=== PATIENT | female | born 1935 | race Caucasian/White ===

== ENCOUNTER 2018-04-02 06:41 | Inpatient (IN) | payer MEDICARE ==
[~2018-04-02] VITALS: Ht 157.5 cm; Wt 56.7 kg
[~2018-04-02 06:41] MED LIST: ASPIR 8181 MG PO; NORVASC2.5 MG PO; OMEPRAZOLE40 MG PO; PREMARIN0.625 MG PO; VITAMIN D1000 UNI1 PO; WOMEN'S DAILY1 EAC1 PO; ZANAFLEX2 M1 PO
[2018-04-02] MEDS ORDERED: SODIUM CHLORIDE 0.9% 1000ML 1,000 ML IV STA (07:31)
[2018-04-02] MEDS ORDERED: PANTOPRAZOLE 40 MG 10ML VIAL IV NR (07:45)
[2018-04-02] MEDS ORDERED: DIATRIZOATE MEGL/DIATRIZOA SOD 30 ML BTL PO ONE (07:46)
[2018-04-02 08:00] LABS: BASOPHILS % 0.5 % (0.0-1.0); EOSINOPHILS # (AUTO) 0.2 (0.0-0.4); HEMATOCRIT 38.8 % (34.2-44.1); LYMPHOCYTES # (AUTO) 1.2 (1.0-3.2); LYMPHOCYTES % 13.8 % (18.0-39.1); MEAN CORPUSCULAR HGB CONC 33.5 g/dL (31-35); MEAN CORPUSCULAR VOLUME 89.4 fL (81-99); MONOCYTES # (AUTO) 0.7 (0.2-0.8); MONOCYTES % 8.1 % (4.4-11.3); NEUTROPHILS # (AUTO) 6.4 (2.1-6.9); NEUTROPHILS % 75.2 % (38.7-80.0); PLATELET COUNT 224 x10e3/uL (140-360); RED BLOOD COUNT 4.34 x10e6/uL (3.6-5.1); RED CELL DISTRIBUTION WIDTH 13.2 % (11.7-14.4)
[2018-04-02 08:09] LABS: INR 1.09; PROTHROMBIN TIME 13.3 seconds (11.9-14.5)
[2018-04-02 08:10] LABS: PARTIAL THROMBOPLASTIN TIME 29.1 seconds (23.8-35.5)
[2018-04-02 08:15] LABS: BLOOD UREA NITROGEN 21 mg/dL (7-26)
--- NOTE | 2018-04-02 08:15 | Diagnostic Imaging Report ---
PROCEDURE: CHEST SINGLE (PORTABLE) COMPARISON: 12/21/2015. INDICATIONS: ABDOMEN PAIN FINDINGS: The lungs remain hyperinflated with biapical pleural-parenchymal scar, left greater than right. No consolidation, pleural effusion, or pneumothorax. Stable cardiomediastinal contour with tortuosity and atherosclerotic calcification of the thoracic aorta. Normal heart size. No pulmonary edema. No acute osseous abnormality. No free air under the diaphragm. CONCLUSION: Pulmonary hyperinflation suggestive of obstructive lung disease. No acute cardiopulmonary abnormality. Dictated by: Jose Palmer M.D. on 04/02/2018 at 8:18 Electronically approved by: Jose Palmer M.D. on 04/02/2018 at 8:18
[2018-04-02 08:18] LABS: ALANINE AMINOTRANSFERASE 19 IU/L (0-55); ALBUMIN 3.8 g/dL (3.5-5.0); ALBUMIN/GLOBULIN RATIO 1.1 (0.8-2.0); ALKALINE PHOSPHATASE 53 IU/L (40-150); AMYLASE 71 U/L (25-125); ANION GAP 13.6 mmol/L (8-16); BUN/CREATININE RATIO 22 (6-25); CALCIUM 9.6 mg/dL (8.4-10.2); CARBON DIOXIDE 26 mmol/L (22-29); CHLORIDE 103 mmol/L (98-107); CREATINE KINASE 86 IU/L (29-168); CREATININE, SERUM 0.96 mg/dL (0.57-1.11); EST GLOMERULAR FILTRATION RATE 56 ML/MIN (60-); GLUCOSE 112 mg/dL (74-118); LIPASE 31 U/L (8-78); POTASSIUM 3.6 mmol/L (3.5-5.1); SODIUM 139 mmol/L (136-145)
[2018-04-02 08:21] LABS: B-TYPE NATRIURETIC PEPTIDE2 43.2 pg/mL (0-100)
[2018-04-02 09:36] LABS: BILIRUBIN,URINE NEGATIVE (NEGATIVE); CLARITY,URINE CLEAR (CLEAR); COLOR,URINE YELLOW (YELLOW); KETONES,URINE TRACE (NEGATIVE); LEUKOCYTE ESTERASE ,URINE 1+ (NEGATIVE); NITRITE,URINE NEGATIVE (NEGATIVE); PROTEIN,URINE DIPSTICK NEGATIVE (NEGATIVE); URINE UROBILINOGEN 0.2 mg/dL (0.2 - 1)
[2018-04-02 09:56] LABS: BACTERIA,URINE MODERATE /HPF; EPITHELIAL CELLS,URINE FEW /LPF; RBC,URINE 0-5 /HPF (0-5)
[2018-04-02] MEDS ORDERED: LEVOFLOXACIN 500MG/D5W 100ML IV SCH (13:00)
[2018-04-02] MEDS ORDERED: MORPHINE SULFATE 2 MG/ML SYR IV PRN (13:00)
[2018-04-02] MEDS: CEFTRIAXONE SOD 1 GM VIAL IV SCH (14:20)
[2018-04-02] MEDS: SODIUM CHLORIDE 0.9% 1000ML 1,000 ML IV SCH ×2 (14:20→21:17)
--- NOTE | 2018-04-02 15:02 | Diagnostic Imaging Report ---
PROCEDURE: CT ABDOMEN AND PELVIS WITH CONTRAST TECHNIQUE: The abdomen and pelvis were scanned utilizing a multidetector helical scanner from the diaphragm to the lesser trochanter after the IV administration of 100 cc of Isovue 370 and the oral administration of water. Coronal and sagittal multiplanar reformations were obtained. COMPARISON: None. INDICATIONS: CONSTIPATION FINDINGS: LOWER THORAX: Normal. HEPATOBILIARY: No focal hepatic lesions. No biliary ductal dilatation. SPLEEN: No splenomegaly. PANCREAS: No focal masses or ductal dilatation. ADRENALS: No adrenal nodules. KIDNEYS/URETERS: Subcentimeter hypoattenuating lesion in the left kidney, too small to further characterize though likely represent a small cyst. Additional similar lesion in the lower pole of left kidney. No hydronephrosis or calculi. PELVIC ORGANS/BLADDER: Urinary bladder is unremarkable. The uterus is not identified and may have been removed. No adnexal mass. PERITONEUM / RETROPERITONEUM: Trace free pelvic fluid, average attenuation 15-20 Hounsfield units. No pneumoperitoneum. LYMPH NODES: No pelvic sidewall, retroperitoneal, or mesenteric lymphadenopathy. VESSELS: The abdominal aorta, major branch vessels, and iliac arterial systems are patent, though with calcified and noncalcified atherosclerotic plaque. No abdominal aortic aneurysm. Portal vein, splenic vein, and the central superior mesenteric vein are patent. GI TRACT: The large bowel is notable for innumerable sigmoid diverticula. Short segment wall thickening and mesocolic inflammation along the distal sigmoid colon. No perforation or drainable fluid collection. The appendix is not definitively identified. No right lower quadrant inflammatory change. No small bowel dilatation to suggest obstruction. BONES AND SOFT TISSUES: No focal soft tissue abnormalities. Degenerative disc changes and degenerative facet arthropathy of the lower lumbar spine. IMPRESSION: Short segment sigmoid diverticulitis with reactive free pelvic fluid. No amalia perforation or drainable fluid collection. Dictated by: Jose Palmer M.D. on 04/02/2018 at 10:02 Electronically approved by: Jose Palmer M.D. on 04/02/2018 at 10:02
[2018-04-02 16:16] VITALS: BP 143/75
[2018-04-02] MEDS: METRONIDAZOLE 500MG/NS 100ML 100 ML IV SCH (17:00)
[2018-04-02] MEDS ORDERED: METRONIDAZOLE 500MG/NS 100ML IV SCH (18:00)
[2018-04-02] MEDS ORDERED: IOPAMIDOL 370 MG/ML 200 ML INFUS..BTL INJ ONE (18:12)
[2018-04-02] MEDS ORDERED: SODIUM CHLORIDE 0.9% 50ML 50 ML ONE (18:12)
[2018-04-02 20:00] VITALS: BP 151/75
[2018-04-02] MEDS ORDERED: ACETAMINOPHEN 325 MG TAB PO PRN (21:30)
[2018-04-03] VITALS (9 sets, daily range): BP systolic 127–147; BP diastolic 65–70
[2018-04-03] MEDS: METRONIDAZOLE 500MG/NS 100ML 100 ML IV SCH ×4 (01:07→16:37)
[2018-04-03] MEDS: CEFTRIAXONE SOD 1 GM VIAL IV SCH ×2 (01:58→13:39)
[2018-04-03] MEDS: SODIUM CHLORIDE 0.9% 1000ML 1,000 ML IV SCH ×3 (05:52→22:52)
[2018-04-03 07:02] LABS: ANION GAP 10.6 mmol/L (8-16); BLOOD UREA NITROGEN 12 mg/dL (7-26); BUN/CREATININE RATIO 16 (6-25); CALCIUM 8.5 mg/dL (8.4-10.2); CARBON DIOXIDE 24 mmol/L (22-29); CHLORIDE 107 mmol/L (98-107); CREATININE, SERUM 0.74 mg/dL (0.57-1.11); EST GLOMERULAR FILTRATION RATE > 60 ML/MIN (60-); GLUCOSE 94 mg/dL (74-118); POTASSIUM 3.6 mmol/L (3.5-5.1); SODIUM 138 mmol/L (136-145)
[2018-04-03 07:09] LABS: BASOPHILS % 0.2 % (0.0-1.0); EOSINOPHILS # (AUTO) 0.1 (0.0-0.4); EOSINOPHILS % 1.2 % (0.0-6.0); HEMOGLOBIN 11.7 g/dL (12.0-16.0); LYMPHOCYTES # (AUTO) 1.5 (1.0-3.2); LYMPHOCYTES % 15.3 % (18.0-39.1); MEAN CORPUSCULAR HEMOGLOBIN 30.5 pg (28-32); MEAN CORPUSCULAR HGB CONC 33.4 g/dL (31-35); MEAN CORPUSCULAR VOLUME 91.1 fL (81-99); MONOCYTES % 9.6 % (4.4-11.3); NEUTROPHILS # (AUTO) 7.3 (2.1-6.9); NEUTROPHILS % 73.2 % (38.7-80.0); PLATELET COUNT 211 x10e3/uL (140-360); RED BLOOD COUNT 3.84 x10e6/uL (3.6-5.1); RED CELL DISTRIBUTION WIDTH 13.3 % (11.7-14.4)
--- NOTE | 2018-04-03 07:33 | History and Physical ---
DATE OF ENCOUNTER: 04/03/2018 This is coverage for hospital doctor, Tobin Bhandari MD. PCP: [facility]. HISTORY OF PRESENT ILLNESS: Ms. Jeong is a pleasant 82-year-old female with abdominal pain. Patient described pain as cramping. It was diffuse in location. However, it was worse in the right lower quadrant and left lower quadrant. Onset, 4 days ago it started. Patient also had constipation as well. She describes eating sunflower seeds recently and she wonders if this was contributing. She had vomiting times 2. She presented to the emergency room on April 02, 2018. In the emergency room, the patient proceeded to have blood work. While the white count was 8.5 normal and other labs were mostly unremarkable, she did proceed to have the imaging. CT of the abdomen and pelvis was done due to significant pain there and findings include short segment sigmoid diverticulitis with a reactive free pelvic fluid, but there was no amalia perforation or drainable fluid collection. At this point, it was elected to admit her. PAST MEDICAL HISTORY: Hypertension. MEDICATIONS: Medication list reviewed per electronic record. So far, on ceftriaxone and Flagyl with good improvement already. Other medicines noted. ALLERGIES: CIPROFLOXACIN, TRIAMTERENE, HYDROCHLOROTHIAZIDE, PRIMIDONE, SULFA. SOCIAL HISTORY: No smoking, no drinking, no drugs. 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 FAMILY HISTORY: Noncontributory. REVIEW OF SYSTEMS: GENERAL: No weight change. OPHTHALMOLOGIC: No double vision. ENT: No dry mouth. ENDOCRINE: No thyroid disease. PULMONARY: No asthma. CARDIAC: No heart attacks. GI: No diarrhea. : No blood in urine. NEUROLOGIC: No seizures. MUSCULOSKELETAL: Mild arthritis. DERMATOLOGIC: No rashes. OBJECTIVE: VITAL SIGNS: Afebrile. Vital signs noted per electronic record. GENERAL: No acute distress, alert and calm. HEENT: Normocephalic, atraumatic. NECK: Supple. Throat midline. LUNGS: Bilateral air entry, clear. CARDIOVASCULAR: S1, S2. No murmurs, rubs or gallops. ABDOMEN: Soft, with moderate amount of pain in her abdomen. No amalia rebound tenderness. EXTREMITIES: No clubbing, no cyanosis, no edema. INTEGUMENT: No rash or purpura. LABS: BUN 21, creatinine 0.96, potassium 3.6, hematocrit 39. LFTs unremarkable. IMPRESSION: 1. Diverticulitis. 2. Hypertension. 3. Reported constipation. 4. Vomiting and dehydration. PLAN: Admit to the hospital. Give IV fluids aggressively. GI was consulted to follow. Patient is currently on clear liquid diet which can be continued for now as she is getting better. Follow serial exams. If the patient worsens, we will have to consider nonmedical treatment. For now, there is steady progress. We will repeat blood work in the morning and continue current antibiotics. DVT prophylaxis. Thank you very much for allowing me the chance to participate in care of Ms. Jeong. I am covering for Dr. Bhandari at this time. Job#: [id number] LAUREEN
[2018-04-03] MEDS: PANTOPRAZOLE 40 MG 10ML VIAL IV SCH (07:39)
--- NOTE | 2018-04-03 09:14 | Diagnostic Imaging Report ---
EXAM: ABDOMEN COMP INCL UPR or DECUB, DATE: 04/03/2018 5:00 AM INDICATION: Abdominal pain. Constipation. COMPARISON: 02/15/2014. Correlation with CT abdomen dated 04/02/18. FINDINGS: LINES/TUBES: None BOWEL PATTERN: Markedly dilated bowel loop again observed in the right mid abdomen. Residual oral contrast is present within the colon, which excludes complete small bowel obstruction. Moderate volume of stool within the colon. SOFT TISSUES: No abnormal calcifications. No mass effect. LUNG BASES: The lung bases are clear. BONES: No acute findings. Rotatory levoscoliosis of the lumbar spine. IMPRESSION: 1. Markedly dilated bowel loop in the right upper/mid abdomen with a similar finding on the recent CT examination of the abdomen is nonspecific. Contrast from CT which the colon which excludes complete small bowel obstruction. Recommend follow-up to resolution. 2. Large volume of stool within the colon. Signed by: Dr. Geri Donis M.D. on 04/03/2018 9:11 AM
[2018-04-03] MEDS ORDERED: AMLODIPINE BESYLATE 2.5 MG PO SCH (12:00)
[2018-04-03] MEDS: AMLODIPINE BESYLATE 5 MG TAB PO SCH (12:08)
[2018-04-03] MEDS ORDERED: POTASSIUM CHLORIDE 20MEQ/100ML 100 ML IV ONE (15:45)
[2018-04-03] MEDS: ENOXAPARIN SOD INJ 40 MG/0.4 ML SYR SC SCH (16:25)
[2018-04-03] MEDS: DOCUSATE SODIUM 100 MG CAP PO SCH (16:25)
[2018-04-04] VITALS (7 sets, daily range): BP systolic 135–153; BP diastolic 61–74
[2018-04-04] MEDS: METRONIDAZOLE 500MG/NS 100ML 100 ML IV SCH ×4 (00:04→17:58)
[2018-04-04] MEDS: CEFTRIAXONE SOD 1 GM VIAL IV SCH ×2 (00:04→12:36)
[2018-04-04] MEDS: SODIUM CHLORIDE 0.9% 1000ML 1,000 ML IV SCH ×3 (04:54→21:14)
[2018-04-04 05:02] LABS: BASOPHILS % 0.2 % (0.0-1.0); EOSINOPHILS # (AUTO) 0.1 (0.0-0.4); EOSINOPHILS % 1.4 % (0.0-6.0); HEMATOCRIT 31.6 % (34.2-44.1); HEMOGLOBIN 10.8 g/dL (12.0-16.0); LYMPHOCYTES # (AUTO) 1.3 (1.0-3.2); LYMPHOCYTES % 16.1 % (18.0-39.1); MEAN CORPUSCULAR HEMOGLOBIN 30.6 pg (28-32); MEAN CORPUSCULAR HGB CONC 34.2 g/dL (31-35); MEAN CORPUSCULAR VOLUME 89.5 fL (81-99); MONOCYTES # (AUTO) 0.8 (0.2-0.8); NEUTROPHILS # (AUTO) 5.8 (2.1-6.9); NEUTROPHILS % 71.9 % (38.7-80.0); PLATELET COUNT 183 x10e3/uL (140-360); RED BLOOD COUNT 3.53 x10e6/uL (3.6-5.1); RED CELL DISTRIBUTION WIDTH 13.2 % (11.7-14.4)
[2018-04-04 05:43] LABS: ANION GAP 9.2 mmol/L (8-16); BLOOD UREA NITROGEN 7 mg/dL (7-26); BUN/CREATININE RATIO 10 (6-25); CALCIUM 8.4 mg/dL (8.4-10.2); CARBON DIOXIDE 26 mmol/L (22-29); CHLORIDE 109 mmol/L (98-107); CREATININE, SERUM 0.71 mg/dL (0.57-1.11); EST GLOMERULAR FILTRATION RATE > 60 ML/MIN (60-); GLUCOSE 102 mg/dL (74-118); MAGNESIUM 1.8 MG/DL (1.3-2.1); POTASSIUM 4.2 mmol/L (3.5-5.1); SODIUM 140 mmol/L (136-145)
--- NOTE | 2018-04-04 06:55 | Diagnostic Imaging Report ---
EXAM: ABDOMEN COMP INCL UPR or DECUB, 2 views INDICATION: Constipation COMPARISON: Abdominal x-ray April 03, 2018 FINDINGS: LINES/TUBES: None BOWEL PATTERN: Nonspecific bowel gas pattern with stable dilated loop of central and right upper quadrant bowel. Large amount of retained stool predominantly in the left colon. Contrast is seen throughout the colon to the rectum. SOFT TISSUES: No abnormal calcifications. LUNG BASES: No consolidations BONES: No acute findings. IMPRESSION: Nonspecific bowel gas pattern, similar to prior exam. Large amount of retained stool predominantly in the left colon and the rectum. Signed by: Dr. Azucena Perla M.D. on 04/04/2018 6:52 AM
[2018-04-04] MEDS ORDERED: MAGNESIUM HYDROXIDE 30 ML UDC PO NR ×2 (08:30→12:30)
[2018-04-04] MEDS: DOCUSATE SODIUM 100 MG CAP PO SCH ×2 (08:48→17:31)
[2018-04-04] MEDS: AMLODIPINE BESYLATE 5 MG TAB PO SCH (08:48)
[2018-04-04] MEDS ORDERED: SOD PHOSPHATE/SOD BIPHOSPHATE ENEMA 132 ML BTL PR NR (09:00)
[2018-04-04] MEDS: PANTOPRAZOLE 40 MG 10ML VIAL IV SCH (09:41)
--- NOTE | 2018-04-04 14:04 | Progress Note ---
DATE: April 04, 2018 INTERNAL MEDICINE PROGRESS NOTE This is coverage for Dr. Bhandari. SUBJECTIVE: Ms. Jeong was seen and examined at bedside. She continues to have slow improvement. She did have an enema yesterday that she did not tolerate well and, therefore, did not have any big bowel movements. She is, however, tolerating gentle amounts of laxative from the upper GI tract. The patient continues IV fluids at this time. Abdominal pain continues to improve. The patient is on a clear liquid diet and sometimes will eat and sometimes will not. REVIEW OF SYSTEMS: No headache. No rash. The abdominal pain overall is better, but she is still in pain. OBJECTIVE VITAL SIGNS: Afebrile. Vital signs noted per electronic record. GENERAL: No acute distress, alert and calm. HEENT: Normocephalic, atraumatic. NECK: Supple. Throat midline. LUNGS: Bilateral air entry, clear. CARDIOVASCULAR: S1, S2. No murmurs, rubs or gallops. ABDOMEN: Soft, nontender. EXTREMITIES: No clubbing, no cyanosis. There is no edema. INTEGUMENT: No rash. No purpura. LABS: White count 8, 32 hematocrit, 12 BUN, 0.7 creatinine, 4.2 potassium. IMPRESSION 1. Diverticulitis. 2. Constipation. 3. Hypertension by history. 4. Mild anemia. PLAN: Follow up closely. Continue to wait for bowel movement and for effect of magnesium hydroxide. Continue IV antibiotics for diverticulitis. Serial abdominal exams are indicated. Continue blood pressure control. Continue clear liquid diet for now and escalate if she shows clear signs of improvement. Job#: [id number]
[2018-04-04] MEDS: ENOXAPARIN SOD INJ 40 MG/0.4 ML SYR SC SCH (17:31)
[2018-04-05] MEDS: METRONIDAZOLE 500MG/NS 100ML 100 ML IV SCH ×4 (00:05→17:01)
[2018-04-05 00:24] VITALS: BP 146/70
[2018-04-05] MEDS: CEFTRIAXONE SOD 1 GM VIAL IV SCH ×2 (01:13→12:00)
[2018-04-05 04:00] VITALS: BP 152/69
[2018-04-05] MEDS: SODIUM CHLORIDE 0.9% 1000ML 1,000 ML IV SCH ×3 (05:49→20:54)
[2018-04-05 05:53] LABS: BASOPHILS % 0.6 % (0.0-1.0); EOSINOPHILS # (AUTO) 0.2 (0.0-0.4); EOSINOPHILS % 2.7 % (0.0-6.0); HEMATOCRIT 31.4 % (34.2-44.1); HEMOGLOBIN 10.7 g/dL (12.0-16.0); LYMPHOCYTES # (AUTO) 1.2 (1.0-3.2); LYMPHOCYTES % 19.2 % (18.0-39.1); MEAN CORPUSCULAR HEMOGLOBIN 30.7 pg (28-32); MEAN CORPUSCULAR HGB CONC 34.1 g/dL (31-35); MEAN CORPUSCULAR VOLUME 90.2 fL (81-99); MONOCYTES # (AUTO) 0.7 (0.2-0.8); MONOCYTES % 11.2 % (4.4-11.3); NEUTROPHILS # (AUTO) 4.1 (2.1-6.9); NEUTROPHILS % 66.1 % (38.7-80.0); PLATELET COUNT 188 x10e3/uL (140-360); RED BLOOD COUNT 3.48 x10e6/uL (3.6-5.1); RED CELL DISTRIBUTION WIDTH 13.2 % (11.7-14.4)
[2018-04-05 06:20] LABS: ALANINE AMINOTRANSFERASE 14 IU/L (0-55); ALBUMIN 2.9 g/dL (3.5-5.0); ALBUMIN/GLOBULIN RATIO 1.1 (0.8-2.0); ALKALINE PHOSPHATASE 36 IU/L (40-150); ANION GAP 9.8 mmol/L (8-16); BLOOD UREA NITROGEN 7 mg/dL (7-26); BUN/CREATININE RATIO 10 (6-25); CALCIUM 8.5 mg/dL (8.4-10.2); CARBON DIOXIDE 28 mmol/L (22-29); CHLORIDE 107 mmol/L (98-107); CREATININE, SERUM 0.69 mg/dL (0.57-1.11); EST GLOMERULAR FILTRATION RATE > 60 ML/MIN (60-); GLUCOSE 96 mg/dL (74-118); MAGNESIUM 1.7 MG/DL (1.3-2.1); POTASSIUM 3.8 mmol/L (3.5-5.1); SODIUM 141 mmol/L (136-145)
--- NOTE | 2018-04-05 06:54 | Diagnostic Imaging Report ---
EXAM: ABDOMEN-1VIEW (KUB), supine INDICATION: Abdominal pain COMPARISON: Abdominal x-ray April 04, 2018 FINDINGS: LINES/TUBES: None BOWEL PATTERN: Nonspecific bowel gas pattern with stable dilated loops of central bowel. Contrast is seen throughout the colon. There may be a slight decrease in the amount of stool in the left colon compared to prior exam. SOFT TISSUES: No abnormal calcifications. LUNG BASES: Not included BONES: No acute findings. IMPRESSION: Similar appearance of the bowel with nonspecific mildly air distended loops of centralized bowel. Oral contrast is seen throughout the colon to the rectum. Signed by: Dr. Azucena Perla M.D. on 04/05/2018 6:50 AM
[2018-04-05 08:15] VITALS: BP 162/73
[2018-04-05 08:45] VITALS: BP 162/73
[2018-04-05] MEDS: AMLODIPINE BESYLATE 5 MG TAB PO SCH (08:47)
[2018-04-05] MEDS: DOCUSATE SODIUM 100 MG CAP PO SCH ×2 (08:47→16:00)
[2018-04-05] MEDS: PANTOPRAZOLE 40 MG 10ML VIAL IV SCH (08:47)
[2018-04-05] MEDS ORDERED: MAGNESIUM HYDROXIDE 30 ML UDC PO ONE (09:00)
[2018-04-05] MEDS: ONDANSETRON HCL INJ 2 MG/ML VIAL IV PRN (09:30)
[2018-04-05] MEDS: ENOXAPARIN SOD INJ 40 MG/0.4 ML SYR SC SCH (16:00)
[2018-04-05 16:40] VITALS: BP 159/67
[2018-04-05 20:00] VITALS: BP 160/69
[2018-04-06] VITALS (9 sets, daily range): BP systolic 125–161; BP diastolic 59–72
[2018-04-06] MEDS: METRONIDAZOLE 500MG/NS 100ML 100 ML IV SCH ×4 (00:13→22:00)
[2018-04-06] MEDS: CEFTRIAXONE SOD 1 GM VIAL IV SCH ×2 (01:55→14:00)
[2018-04-06] MEDS: SODIUM CHLORIDE 0.9% 1000ML 1,000 ML IV SCH ×2 (02:00→12:54)
[2018-04-06 05:54] LABS: BASOPHILS % 0.5 % (0.0-1.0); EOSINOPHILS # (AUTO) 0.2 (0.0-0.4); EOSINOPHILS % 3.4 % (0.0-6.0); HEMATOCRIT 31.1 % (34.2-44.1); HEMOGLOBIN 10.6 g/dL (12.0-16.0); LYMPHOCYTES % 18.8 % (18.0-39.1); MEAN CORPUSCULAR HEMOGLOBIN 30.5 pg (28-32); MEAN CORPUSCULAR HGB CONC 34.1 g/dL (31-35); MEAN CORPUSCULAR VOLUME 89.6 fL (81-99); MONOCYTES # (AUTO) 0.6 (0.2-0.8); MONOCYTES % 10.9 % (4.4-11.3); NEUTROPHILS # (AUTO) 3.7 (2.1-6.9); NEUTROPHILS % 66.2 % (38.7-80.0); PLATELET COUNT 200 x10e3/uL (140-360); RED BLOOD COUNT 3.47 x10e6/uL (3.6-5.1)
[2018-04-06 06:21] LABS: ANION GAP 10.7 mmol/L (8-16); BLOOD UREA NITROGEN 6 mg/dL (7-26); BUN/CREATININE RATIO 9 (6-25); CALCIUM 8.7 mg/dL (8.4-10.2); CARBON DIOXIDE 29 mmol/L (22-29); CHLORIDE 106 mmol/L (98-107); EST GLOMERULAR FILTRATION RATE > 60 ML/MIN (60-); GLUCOSE 89 mg/dL (74-118); POTASSIUM 3.7 mmol/L (3.5-5.1); SODIUM 142 mmol/L (136-145)
--- NOTE | 2018-04-06 07:24 | Diagnostic Imaging Report ---
EXAM: ABDOMEN-1VIEW (KUB), supine INDICATION: Constipation COMPARISON: KUB April 05, 2018 FINDINGS: LINES/TUBES: None BOWEL PATTERN: Nonspecific bowel gas pattern with stable mildly dilated loops of central bowel. Contrast is seen in the colon. Decreased amount of stool. Air is seen in the rectum. SOFT TISSUES: No abnormal calcifications. LUNG BASES: Not included BONES: No acute findings. IMPRESSION: Interval decreased amount of stool, otherwise stable appearance of the abdomen with nonspecific mild air distention of loops of centralized bowel. Signed by: Dr. Azucena Perla M.D. on 04/06/2018 7:21 AM
[2018-04-06] MEDS: AMLODIPINE BESYLATE 5 MG TAB PO SCH (09:50)
[2018-04-06] MEDS: DOCUSATE SODIUM 100 MG CAP PO SCH ×2 (09:50→17:00)
[2018-04-06] MEDS: PANTOPRAZOLE 40 MG 10ML VIAL IV SCH (09:50)
[2018-04-06] MEDS: ONDANSETRON HCL INJ 2 MG/ML VIAL IV PRN (11:50)
[2018-04-06] MEDS: ENOXAPARIN SOD INJ 40 MG/0.4 ML SYR SC SCH (18:14)
[2018-04-06] MEDS: MAGNESIUM HYDROXIDE 30 ML UDC PO ONE (22:00)
[2018-04-07] VITALS (7 sets, daily range): BP systolic 131–165; BP diastolic 63–80
[2018-04-07] MEDS: CEFTRIAXONE SOD 1 GM VIAL IV SCH ×2 (02:00→13:30)
[2018-04-07] MEDS: METRONIDAZOLE 500MG/NS 100ML 100 ML IV SCH ×3 (05:02→21:20)
[2018-04-07] MEDS: DOCUSATE SODIUM 100 MG CAP PO SCH ×2 (10:00→18:23)
[2018-04-07] MEDS: PANTOPRAZOLE 40 MG 10ML VIAL IV SCH (10:00)
[2018-04-07] MEDS: ENOXAPARIN SOD INJ 40 MG/0.4 ML SYR SC SCH (18:24)
[2018-04-07] MEDS: MAGNESIUM HYDROXIDE 30 ML UDC PO ONE (22:00)
[2018-04-08] VITALS: BP 130/64
[2018-04-08] MEDS: CEFTRIAXONE SOD 1 GM VIAL IV SCH (01:29)
[2018-04-08 04:00] VITALS: BP 143/63
[2018-04-08] MEDS: METRONIDAZOLE 500MG/NS 100ML 100 ML IV SCH (05:22)
[2018-04-08 08:05] VITALS: BP 145/66
[2018-04-08] MEDS ORDERED: AMLODIPINE BESYLATE 5 MG TAB PO SCH (09:00)
[2018-04-08 09:15] VITALS: BP 145/66
[2018-04-08] MEDS: PANTOPRAZOLE 40 MG 10ML VIAL IV SCH (09:38)
[2018-04-08] MEDS: DOCUSATE SODIUM 100 MG CAP PO SCH (09:38)
[2018-04-08] MEDS ORDERED: AUGMENTIN 875-1 EACH PO (11:10)
--- NOTE | 2018-04-08 16:06 | Discharge Summary ---
PRIMARY CARE PHYSICIAN: Dr. Toya Morris with [facility]. FINAL DIAGNOSIS: Acute sigmoid diverticulitis. SECONDARY DIAGNOSES 1. Hypertension. 2. Gastroesophageal reflux disease. CONSULTANTS: Dr. Painting for GI. PROCEDURES/STUDIES PERFORMED: Abdominal CT. HISTORY: Per H\T\P. HOSPITAL COURSE: The patient was put on IV Rocephin and Flagyl. She did well. Currently, the patient is tolerating soft diet. I discussed with Dr. Painting today. The patient can go home on Augmentin for another 10 days due to her Levaquin allergy. The patient was also instructed to take probiotics over the counter. I have also updated her primary care physician about this hospitalization. The patient was seen and examined today. It took 32 minutes total to discharge this patient. The patient received Lovenox for DVT prophylaxis. CONDITION ON DISCHARGE: Stable. DISCHARGE MEDICATIONS: Please see medication reconciliation form. LIZZIE OLIVO M.D. Job#: [id number] cc:TOYA MORRIS MD
== END 2018-04-08 12:12 | disposition home or self-care (01) | DRG 392 ==
LOC: ER 06:41 → ERHOLD 13:30 → IMCU 14:54 → OBSVTOIN 04-04 11:54 → MED/SURG 04-04 13:45
PROVIDERS: ADMIT Internal Medicine; ATTEND Internal Medicine
DX: K57.32 Diverticulitis of large intestine without perforation or abscess without bleeding (principal); E86.0 Dehydration; K59.00 Constipation, unspecified; Z88.1 Allergy status to other antibiotic agents; Z91.013 Allergy to seafood; Z88.2 Allergy status to sulfonamides; Z88.8 Allergy status to other drugs, medicaments and biological substances; Z91.018 Allergy to other foods; I10 Essential (primary) hypertension; D64.9 Anemia, unspecified; K21.9 Gastro-esophageal reflux disease without esophagitis
CPT/HCPCS: 36415; 71045; 74018; 74177; 80048; 80053; 81001; 82150; 82550; 82553; 83605; 83690; 83735; 83880; 84484; 85025; 85610; 85730; 87086; 93005; 99284; G0378; J0696; J1650; J2405; J3480; J7030; Q9967

== ENCOUNTER 2019-11-11 07:04 | Emergency (ER) | payer MEDICARE ==
[~2019-11-11] VITALS: Ht 157.5 cm; Wt 56.7 kg
[~2019-11-11 07:04] MED LIST changes: +AUGMENTIN 875-1 EACH PO
[2019-11-11] MEDS ORDERED: AMLODIPINE BESYLATE 5 MG TAB ONE (07:29)
[2019-11-11] MEDS ORDERED: AMLODIPINE BESYLATE 5 MG TAB PO ONE (07:30)
[2019-11-11] MEDS ORDERED: PYRIDIUM100 MG PO (07:52)
[2019-11-11] MEDS ORDERED: CEFDINIR300 MG PO (07:52)
[2019-11-11 07:56] VITALS: BP 182/87
== END 2019-11-11 08:16 | disposition home or self-care (01) ==
LOC: FSED 07:04
DX: R30.0 Dysuria (principal); N30.91 Cystitis, unspecified with hematuria; I10 Essential (primary) hypertension
CPT/HCPCS: 81003; 99283

== ENCOUNTER 2021-02-22 02:18 | Emergency (ER) | payer MEDICARE ==
[~2021-02-22] VITALS: Ht 157.5 cm; Wt 54.4 kg
[~2021-02-22 02:18] MED LIST changes: +CEFDINIR300 MG PO; +PYRIDIUM100 MG PO
[2021-02-22] MEDS ORDERED: CEPHALEXIN500 MG PO (03:09)
[2021-02-22 03:23] VITALS: BP 172/92
== END 2021-02-22 03:23 | disposition home or self-care (01) ==
LOC: FSED 03:05
DX: R30.0 Dysuria (principal); R35.0 Frequency of micturition; N39.0 Urinary tract infection, site not specified; I10 Essential (primary) hypertension
CPT/HCPCS: 99283

== ENCOUNTER 2021-04-01 17:35 | Emergency (ER) | payer MEDICARE ==
[~2021-04-01] VITALS: Ht 157.5 cm; Wt 54.4 kg
[~2021-04-01 17:35] MED LIST changes: +CEPHALEXIN500 MG PO
[2021-04-01] MEDS ORDERED: ASPIRIN 81 MG CHEW TAB PO ONE (18:00)
[2021-04-01] MEDS ORDERED: LACTULOSE SYRUP 20 GM/30 ML UDC PO ONE (18:15)
[2021-04-01] MEDS ORDERED: SOD PHOSPHATE/SOD BIPHOSPHATE ENEMA 132 ML BTL PR ONE ×2 (18:15→21:20)
[2021-04-01] MEDS ORDERED: LACTULOSE20 GM/30 M PO (21:52)
[2021-04-01 22:18] VITALS: BP 142/67
== END 2021-04-01 22:15 | disposition home or self-care (01) ==
LOC: ER 17:56
DX: K59.00 Constipation, unspecified (principal); I10 Essential (primary) hypertension; Z87.19 Personal history of other diseases of the digestive system
CPT/HCPCS: 74018; 99284

== ENCOUNTER 2025-06-04 13:25 | Emergency (ER) | payer MEDICARE ==
[~2025-06-04] VITALS: Ht 157.5 cm; Wt 50.3 kg
[~2025-06-04 13:25] MED LIST changes: +LACTULOSE20 GM/30 M PO; +NAPROXEN250 MG PO
[2025-06-04 13:52] VITALS: TEMP 98.7
[2025-06-04 14:27] LABS: BASOPHILS % 0.5 % (0.0-1.0); EOSINOPHILS % 0.8 % (0.0-6.0); LYMPHOCYTES % 13.7 % (18.0-39.1); MONOCYTES % 7.8 % (4.4-11.3); NEUTROPHILS % 76.8 % (38.7-80.0); RED CELL DISTRIBUTION WIDTH 13.3 % (11.7-14.4)
[2025-06-04] MEDS: SODIUM CHLORIDE 0.9% 500ML 500 ML IV ONE (14:48)
[2025-06-04 14:51] LABS: EST GLOMERULAR FILTRATION RATE 59.0 ML/MIN (>=60)
[2025-06-04 15:18] LABS: INR 0.98
[2025-06-04 15:19] LABS: LEUKOCYTE ESTERASE ,URINE SMALL (NEGATIVE); PROTEIN,URINE DIPSTICK NEGATIVE (NEGATIVE)
[2025-06-04 15:20] LABS: URINE UROBILINOGEN 0.2 mg/dL (0.2 - 1)
[2025-06-04 15:36] LABS: EPITHELIAL CELLS,URINE FEW /LPF
[2025-06-04 16:15] VITALS: PULSE 81; RESP 24; O2SAT 98
[2025-06-04] MEDS ORDERED: CEFDINIR300 MG PO (16:34)
== END 2025-06-04 16:45 | disposition home or self-care (01) ==
LOC: ER 14:11
DX: N39.0 Urinary tract infection, site not specified (principal); I10 Essential (primary) hypertension; F41.9 Anxiety disorder, unspecified; Z87.19 Personal history of other diseases of the digestive system
CPT/HCPCS: 36415; 71045; 80053; 81001; 83735; 84484; 85025; 85610; 85730; 93005; 99284; J7040